=== PATIENT | male | born 1945 | race Caucasian/White ===

== ENCOUNTER 2016-10-14 15:17 | Emergency (ER) | payer OTHER, MEDICARE ==
[2016-10-14 15:36] VITALS: TEMP 98.7
[2016-10-14] MEDS ORDERED: Morphine 4 mg/ml ISec IM STA (15:45)
--- NOTE | 2016-10-14 15:50 | ED PDOC ---
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 There is no dizziness. No loss of consciousness. No head trauma. No chest pain palpitations or dyspnea. No nausea vomiting. No neck or low back pain. No other extremity trauma. Past Medical History - Cardiac Hx Cardiac Disorders: No - Pulmonary Hx Respiratory Disorders: No - Neurological Hx Neurological Disorder: No - HEENT Hx HEENT Disorder: No - Renal Hx Renal Disorder: No - Endocrine/Metabolic Hx Endocrine Disorders: Yes Hx Hypothyroidism: Yes - Hematological/Oncological Hx Blood Disorders: No - Integumentary Hx Dermatological Disorder: No - Musculoskeletal/Rheumatological Hx Musculoskeletal Disorders: No - Gastrointestinal Hx Gastrointestinal Disorders: No - Genitourinary/Gynecological Hx Genitourinary Disorders: No - Psychiatric Hx Psychophysiologic Disorder: No Hx Substance Use: No - Surgical History Hx Appendectomy: Yes Hx Cholecystectomy: Yes Family/Social History - Physician Review Nursing Documentation Reviewed: Yes Family/Social History: Unknown Family HX Smoking Status: Never Smoked Hx Alcohol Use: No Hx Substance Use: No Allergies/Home Meds Allergies/Adverse Reactions: Allergies No Known Allergies Allergy (Verified 10/14/16 15:35) Review of Systems - Physician Review All systems were reviewed & negative as marked: Yes - Review of Systems Respiratory: Normal Cardiovascular: Normal Gastrointestinal: Normal Neurological: Normal Physical Exam Vital Signs Temp Pulse Resp BP Pulse Ox 10/14/16 16:05 82 18 117/71 98 10/14/16 15:36 98.7 F 69 20 165/73 H 97 Temperature: Afebrile Blood Pressure: Normal Pulse: Regular Respiratory Rate: Normal Appearance: Positive for: Well-Appearing, Non-Toxic, Uncomfortable Pain Distress: Moderate Mental Status: Positive for: Alert and Oriented X 3 - Systems Exam Head: Present: Atraumatic, Normocephalic Neck: Present: Normal Range of Motion. No: MIDLINE TENDERNESS, Paraspinal Tenderness Respiratory/Chest: Present: Clear to Auscultation, Good Air Exchange. No: Respiratory Distress, Accessory Muscle Use, Tender to Palpation Cardiovascular: Present: Regular Rate and Rhythm, Normal S1, S2. No: Murmurs Abdomen: Present: Normal Bowel Sounds. No: Tenderness, Distention, Peritoneal Signs, Rebound, Guarding Upper Extremity: Present: Other (Left shoulder and clavicle ecchymosis hematoma limited range of motion and deformity) Lower Extremity: Present: Normal Inspection. No: Edema Neurological: Present: GCS=15, CN II-XII Intact, Speech Normal Skin: Present: Warm, Dry, Normal Color. No: Rashes Medical Decision Making ED Course and Treatment: 10/14/16 17:24 X-rays show a comminuted displaced left clavicle fracture. Patient lives in [facility] and is going home tonight and prefers to get his care there. The disc has been burned for him. - RAD Interpretation Radiology Orders: 10/14/16 15:46 CLAVICLE LEFT [RAD] Stat SHOULDER LEFT [RAD] Stat - Medication Orders Current Medication Orders: Discontinued Medications Morphine Sulfate (Morphine) 4 mg IM STAT STA Stop: 10/14/16 15:46 Last Admin: 10/14/16 15:59 Dose: 4 mg Disposition/Present on Arrival - Present on Arrival Any Indicators Present on Arrival: No History of DVT/PE: No History of Uncontrolled Diabetes: No Urinary Catheter: No History of Decub. Ulcer: No History Surgical Site Infection Following: None - Disposition Have Diagnosis and Disposition been Completed?: Yes Diagnosis: Clavicle fracture Disposition: HOME/ ROUTINE Disposition Time: 17:25 Patient Plan: Discharge Condition: FAIR Discharge Instructions (ExitCare): Clavicle Fracture (ED) Print Language: KENYAN Additional Instructions: Must follow-up with orthopedist at home. Follow up in ER as needed. Prescriptions: oxyCODONE/Acetaminophen [Percocet 5/325 mg Tab] 1 ea PO Q6 #15 tab Ondansetron [Zofran Odt] 4 mg SL Q6 #20 odt Forms: [employer] (Rom[employer]), WORK NOTE
[2016-10-14 16:06] VITALS: BP 117/71; PULSE 82; RESP 18; O2SAT 98
--- NOTE | 2016-10-14 17:42 | RAD ---
PROCEDURE: Radiographs of the left clavicle. HISTORY: Trauma COMPARISON: None. FINDINGS: LEFT CLAVICLE: Comminuted distracted fracture left clavicle. JOINTS: Left acromioclavicular and glenohumeral joints are grossly unremarkable. SOFT TISSUES: Soft tissue swelling attests to the acuity of the fracture. OTHER FINDINGS: None. IMPRESSION: Acute, comminuted and impacted fracture of the left clavicle.
--- NOTE | 2016-10-14 17:43 | RAD ---
PROCEDURE: Radiographs of the Left Shoulder HISTORY: trauma COMPARISON: October 14, 2016. Left clavicle reported separately FINDINGS: BONES: Known left clavicular fracture. No abnormalities with respect to the humeral head, glenoid or scapula. JOINTS: Normal. Glenohumeral and acromioclavicular joints preserved. No osteoarthritis. SOFT TISSUES: Normal. OTHER FINDINGS: None. IMPRESSION: Acute/comminuted fracture left clavicle. No abnormalities with respect to the proximal humerus and glenoid. Unremarkable glenohumeral relationship and acromioclavicular joint.
== END 2016-10-14 17:30 | disposition home or self-care (01) ==
LOC: ED 15:17
DX: S42.002A Fracture of unspecified part of left clavicle, initial encounter for closed fracture (principal); W11.XXXA Fall on and from ladder, initial encounter; Y99.0 Civilian activity done for income or pay
CPT/HCPCS: 73000; 73030; 96372; 99284; J2270